=== PATIENT | male | born 1945 | race Caucasian/White ===

== ENCOUNTER 2017-08-27 13:04 | Day surgery (SDC) | payer OTHER ==
[~2017-08-27] VITALS: Ht 185.4 cm; Wt 117.9 kg
[~2017-08-27 13:04] MED LIST: APRESOLINE100 MG PO; CATAPRES0.3 MG PO; FEOSOL325 MG PO; HUMALOG100 UNIT/2 SC; LANTUS 3 M100 UNITS1 SC; LASIX20 MG PO; LO-DOSE ASPIRIN81 M1 PO; NORVASC5 MG PO; PROTONIX40 MG PO; PROZAC10 MG PO; ROCALTROL0.25 MCG PO; VITRON-C TABLE1 EACH PO
[2017-08-27 13:40] LABS: HEMATOCRIT 27.4 % (38.0-50.0); HEMOGLOBIN 9.1 G/DL (12.5-16.6); MCHC 33.2 G/DL (30.0-36.0); MCV 87.3 FL (86-99); PLATELET COUNT 326 K/uL (156-360); RBC DIS.WIDTH-CV 13.8 % (11.8-14.6); RBC DIS.WIDTH-SD 43.4 % (39-53); RED BLOOD COUNT 3.14 M/uL (4.00-5.50); WHITE BLOOD COUNT 11.7 K/uL (4.1-10.2)
[2017-08-27] MEDS ORDERED: VITRON-C TABLE1 EACH PO (13:44)
[2017-08-27 14:10] LABS: CHLORIDE 110 MEQ/L (99-109); CREATININE 3.2 MG/DL (0.6-1.3); GFR ESTIMATE (CALCULATED) 21 mL/min/ (58.99-99999); GLUCOSE 137 mg/dL (70-99); POTASSIUM 4.7 MEQ/L (3.7-5.4); SODIUM 138 MEQ/L (136-147); UREA NITROGEN (BUN) 48 mg/dL (9-23)
== END 2017-08-27 14:33 | disposition home or self-care (01) ==
LOC: SDC 13:04
PROVIDERS: Surgery
DX: E11.22 Type 2 diabetes mellitus with diabetic chronic kidney disease (principal); I12.0 Hypertensive chronic kidney disease with stage 5 chronic kidney disease or end stage renal disease; Z53.09 Procedure and treatment not carried out because of other contraindication; N18.6 End stage renal disease; Z79.4 Long term (current) use of insulin; I25.2 Old myocardial infarction; Z86.73 Personal history of transient ischemic attack (TIA), and cerebral infarction without residual deficits; Z79.82 Long term (current) use of aspirin
CPT/HCPCS: 80048; 82948; 85027; 93005

== ENCOUNTER 2017-10-22 08:45 | Day surgery (SDC) | payer OTHER ==
[~2017-10-22] VITALS: Ht 188 cm; Wt 115.6 kg
[~2017-10-22 08:45] MED LIST changes: -LASIX20 MG PO; +LASIX40 MG PO; +LYRICA25 MG PO; +NABI650T PO
[2017-10-22 09:19] VITALS: BP 169/75
[2017-10-22 09:54] LABS: HEMATOCRIT 30.1 % (38.0-50.0); HEMOGLOBIN 10.2 G/DL (12.5-16.6); MCHC 33.9 G/DL (30.0-36.0); MCV 85.5 FL (86-99); PLATELET COUNT 237 K/uL (156-360); RBC DIS.WIDTH-CV 12.9 % (11.8-14.6); RBC DIS.WIDTH-SD 39.9 % (39-53); RED BLOOD COUNT 3.52 M/uL (4.00-5.50); WHITE BLOOD COUNT 10.9 K/uL (4.1-10.2)
[2017-10-22 10:18] LABS: CHLORIDE 105 MEQ/L (99-109); POTASSIUM 4.4 MEQ/L (3.7-5.4); SODIUM 138 MEQ/L (136-147)
[2017-10-22 10:23] LABS: CREATININE 3.3 MG/DL (0.6-1.3); GFR ESTIMATE (CALCULATED) 20 mL/min/ (58.99-99999); GLUCOSE 180 mg/dL (70-99); UREA NITROGEN (BUN) 58 mg/dL (9-23)
[2017-10-22 13:59] VITALS: BP 145/66
[2017-10-22 14:42] VITALS: BP 136/63
== END 2017-10-22 14:51 | disposition home or self-care (01) ==
LOC: SDC 08:45
PROVIDERS: Surgery
PROC: 0WHG03Z Insertion of Infusion Device into Peritoneal Cavity, Open Approach (ICD-10-PCS; principal; 2017-10-22)
DX: I12.0 Hypertensive chronic kidney disease with stage 5 chronic kidney disease or end stage renal disease (principal); E11.22 Type 2 diabetes mellitus with diabetic chronic kidney disease; N18.6 End stage renal disease; Z99.2 Dependence on renal dialysis; Z79.4 Long term (current) use of insulin; Z86.73 Personal history of transient ischemic attack (TIA), and cerebral infarction without residual deficits; Z85.46 Personal history of malignant neoplasm of prostate; Z79.82 Long term (current) use of aspirin; R94.31 Abnormal electrocardiogram [ECG] [EKG]
CPT/HCPCS: 80048; 82948; 85027; 93005; C1750; J0690; J1100; J2250; J2405; J3010